=== PATIENT | male | born 1970 | race Caucasian/White ===

== ENCOUNTER 2016-11-14 16:04 | Emergency (ER) | payer MEDICAID, OTHER ==
[2016-11-14] MEDS ORDERED: BUFFERED LIDOCAINE 10 ML SYRINGE ONE (16:27)
== END 2016-11-14 17:04 | disposition home or self-care (01) ==
DX: B34.9 Viral infection, unspecified (principal); L60.0 Ingrowing nail; I10 Essential (primary) hypertension; F17.200 Nicotine dependence, unspecified, uncomplicated

== ENCOUNTER 2018-02-13 10:48 | Emergency (ER) | payer BC, MEDICAID, OTHER ==
[2018-02-13 11:03] VITALS: BP 182/110
[2018-02-13] MEDS: IBUPROFEN 800 MG TABLET PO STA (12:00)
--- NOTE | 2018-02-13 12:01 | ED Physician Documentation ---
PD HPI URI - Stated complaint Stated Complaint: CONGESTION/HUYNH - Chief complaint Chief Complaint: Resp - History obtained from History obtained from: Patient - History of Present Illness Timing duration: Days (4) Timing details: Still present Associated symptoms: Chills, Nasal congestion, Sore throat, Productive cough ( Occasional sputum.) - Treatment prior to arrival Treatment prior to arrival: Ibuprofen last night. - Additional information Additional information: The patient is a 48-year-old male who complains of chills, myalgias, sore throat , cough, and headache of 4 days duration. His cough is occasionally productive of sputum. He denies abdominal symptoms. He has not had a flu vaccination this year. He is a cigarette smoker. Review of Systems Constitutional: reports: Chills, Myalgias Ears: denies: Ear pain Nose: reports: Congestion Throat: reports: Sore throat Cardiac: denies: Chest pain / pressure Respiratory: reports: Cough. denies: Dyspnea GI: denies: Abdominal Pain, Nausea, Vomiting : denies: Dysuria Skin: denies: Rash Musculoskeletal: denies: Neck pain, Extremity swelling Neurologic: reports: Headache. denies: Focal weakness, Numbness PD PAST MEDICAL HISTORY - Past Medical History Past Medical History: Yes Cardiovascular: Hypertension Respiratory: Sleep apnea, CPAP use Endocrine/Autoimmune: None GI: Hiatal hernia : None Psych: Depression, Anxiety Derm: None - Past Surgical History Past Surgical History: Yes General: Appendectomy - Present Medications Home Medications: Ambulatory Orders Medication Instructions Recorded Confirmed Benzonatate [Tessalon Perle] 100 mg PO BID PRN #10 capsule 02/13/18 - Allergies Allergies/Adverse Reactions: Allergies Allergy/AdvReac Type Severity Reaction Status Date / Time No Known Drug Allergies Allergy Verified 02/13/18 11:03 - Social History Does the pt smoke?: Yes Smoking Status: Current every day smoker Does the pt drink ETOH?: Yes Does the pt have substance abuse?: No - Immunizations Immunizations are current?: Yes PD ED PE NORMAL - Vitals Vital signs reviewed: Yes (initially hypertensive.) - General General: Alert and oriented X 3, Well developed/nourished, Other (Sounds congested, and appears miserable.) - HEENT HEENT: Atraumatic, Ears normal, Moist mucous membranes, Pharynx benign - Neck Neck: Supple, no meningeal sign, No adenopathy - Cardiac Cardiac: RRR, No murmur - Respiratory Respiratory: No respiratory distress, Clear bilaterally - Abdomen Abdomen: Soft, Non tender - Back Back: No CVA TTP - Derm Derm: No rash - Extremities Extremities: No edema, No calf tenderness / cord - Neuro Neuro: Alert and oriented X 3, No motor deficit, Normal speech Results - Vitals Vitals: Oxygen O2 Source Room air PD MEDICAL DECISION MAKING - ED course Complexity details: considered differential, d/w patient ED course: The patient's presentation is most consistent with a viral upper respiratory infection and associated viral syndrome. His presentation does not suggest meningitis, acute pharyngitis, or pneumonia. Treatment in the emergency department included administration of ibuprofen 800 mg orally. He is being discharged with a prescription for Tessalon Perles. I discussed with him the expected course of illness, symptomatic treatment and outpatient follow-up, as well as potentially worrisome signs or symptoms that should prompt reevaluation in the emergency department. Departure - Departure Disposition: 01 Home, Self Care Clinical Impression: Viral syndrome Upper respiratory tract infection Qualifiers: URI type: unspecified viral URI Qualified Code(s): J06.9 - Acute upper respiratory infection, unspecified Condition: Stable Instructions: ED Viral Syndrome Follow-Up: [facility] [Provider Group] Prescriptions: Benzonatate [Tessalon Perle] 100 mg PO BID PRN #10 capsule PRN Reason: Cough Comments: Drink plenty of fluids. You can use ibuprofen, up to 800 mg 3 times daily for its anti-inflammatory effect. Take Tessalon as prescribed if needed for cough. Follow up with your primary physician within 2 weeks. Call to schedule appointment. Return to the emergency department if you develop increasing difficulty breathing, or otherwise worsening symptoms. Forms: Activity restrictions Discharge Date/Time: 02/13/18 12:05
== END 2018-02-13 12:05 | disposition home or self-care (01) ==
LOC: ED 10:48
DX: B34.9 Viral infection, unspecified (principal); J06.9 Acute upper respiratory infection, unspecified; I10 Essential (primary) hypertension; F17.200 Nicotine dependence, unspecified, uncomplicated
CPT/HCPCS: 99283; A9270